=== PATIENT | male | born 1990 | race Caucasian/White ===

== ENCOUNTER 2024-03-19 09:16 | Outpatient (CLI) | payer BC ==
[2024-03-19 09:37] LABS: BASOPHILS # (AUTO) 0.1 X10'3 (0-0.2); BASOPHILS % (AUTO) 1.1 % (0-1); EOSINOPHILS # (AUTO) 0.5 X10'3 (0-0.9); EOSINOPHILS % (AUTO) 7.9 % (0-6); HEMATOCRIT 43.2 % (42.0-52.0); HEMOGLOBIN 14.6 g/dl (14.0-17.9); LYMPHOCYTES # (AUTO) 2.5 X10'3 (1.1-4.8); LYMPHOCYTES % (AUTO) 36.7 % (21-51); MEAN CORPUSCULAR HEMOGLOBIN 28.7 PG (27.0-31.0); MEAN CORPUSCULAR HGB CONC 33.7 g/dL (33.0-36.5); MEAN CORPUSCULAR VOLUME 85.1 FL (78-98); MEAN PLATELET VOLUME 8.6 FL (7.4-10.4); MONOCYTES # (AUTO) 0.5 X10'3 (0-0.9); MONOCYTES % (AUTO) 7.1 % (2-12); NEUTROPHILS # (AUTO) 3.3 X10'3 (1.8-7.7); NEUTROPHILS % (AUTO) 47.2 % (42-75); PLATELET COUNT 246 X10'3 (140-440); RED BLOOD COUNT 5.07 X10'6 (4.70-6.10); RED CELL DISTRIBUTION WIDTH 14.7 % (11.5-14.5); WHITE BLOOD COUNT 6.9 X10'3 (4.5-11.0)
[2024-03-19 09:50] LABS: HEMOGLOBIN A1C 5.3 % (4.5-6.2)
[2024-03-19 10:03] LABS: ALANINE AMINOTRANSFERASE 73 U/L (12-78); ALBUMIN 4.1 G/DL (3.4-5.0); ALBUMIN/GLOBULIN RATIO 1.1 (1.1-1.5); ALKALINE PHOSPHATASE 66 IU/L (46-116); ANION GAP 8 (8-16); ASPARTATE AMINO TRANSFERASE 25 U/L (10-37); BILIRUBIN,TOTAL 0.5 MG/DL (0.1-1.0); BLOOD UREA NITROGEN 18 MG/DL (7-18); BUN/CREATININE RATIO 18.2 (10.0-20.0); CALCIUM 8.7 MG/DL (8.5-10.1); CHLORIDE 104 MMOL/L (99-107); CHOL/HDL RATIO 5.2 (0.00-4.99); CHOLESTEROL 223 MG/DL (0-200); CREATININE 0.99 MG/DL (0.60-1.10); FREE T4 (FREE THYROXINE) 0.81 NG/DL (0.73-1.40); GLUCOSE 96 MG/DL (70-104); HDL CHOLESTEROL 43 MG/DL (35-60); LDL CHOLESTEROL 143 MG/DL (50-100); POTASSIUM 4.1 MMOL/L (3.5-5.1); SODIUM 140 MMOL/L (135-145); THYROID STIMULATING HORMONE 3.54 ulU/ml (0.34-4.50); TOTAL CARBON DIOXIDE 28.2 MMOL/L (24-32); TOTAL PROTEIN 7.7 G/DL (6.4-8.2); TRIGLYCERIDES 160 MG/DL (20-135); eGFR 86 ML/MIN
[2024-03-20 13:11] LABS: TESTOSTERONE, SERUM 310 ng/dL (264-916)
== END 2024-03-19 23:59 | disposition home or self-care (01) ==
LOC: LAB 09:16
PROVIDERS: ATTEND Nurse Practitioner Family
DX: Z13.220 Encounter for screening for lipoid disorders (principal); Z76.89 Persons encountering health services in other specified circumstances; Z13.1 Encounter for screening for diabetes mellitus; Z13.29 Encounter for screening for other suspected endocrine disorder; R53.83 Other fatigue; R45.86 Emotional lability; E66.01 Morbid (severe) obesity due to excess calories; R03.0 Elevated blood-pressure reading, without diagnosis of hypertension; Z83.49 Family history of other endocrine, nutritional and metabolic diseases
CPT/HCPCS: 36415; 80053; 80061; 82672; 83036; 84402; 84403; 84439; 84443; 85025

== ENCOUNTER 2024-08-04 08:56 | Day surgery (SDC) | payer BC ==
[~2024-08-04] VITALS: Ht 175.3 cm; Wt 124.2 kg
[~2024-08-04 08:56] MED LIST: ACYC-128 PO
[2024-08-04 09:32] VITALS: BP 137/72; PULSE 66; RESP 14; TEMP 97.8
[2024-08-04] MEDS ORDERED: fentaNYL/PF 50MCG/1 ML 2ML syringe ONE (10:52)
[2024-08-04] MEDS ORDERED: midazolam 1 mg/ML 2ml injection ONE (10:52)
[2024-08-04] MEDS ORDERED: propofol inj 20 ML IV ONE (10:53)
[2024-08-04 11:17] VITALS: BP 107/75; PULSE 77; RESP 13; O2SAT 97
[2024-08-04 11:26] VITALS: BP 120/74; PULSE 73; RESP 14; O2SAT 96
[2024-08-04 11:36] VITALS: BP 123/77; PULSE 64; RESP 18; O2SAT 98
[2024-08-04 11:46] VITALS: BP 119/76; PULSE 70; RESP 16; O2SAT 97
== END 2024-08-04 11:55 | disposition home or self-care (01) ==
LOC: GI LAB 08:56
PROVIDERS: ATTEND Internal Medicine Gastroenterology
DX: R13.10 Dysphagia, unspecified (principal); K21.00 Gastro-esophageal reflux disease with esophagitis, without bleeding; K31.89 Other diseases of stomach and duodenum; K22.89 Other specified disease of esophagus; Z79.899 Other long term (current) drug therapy
CPT/HCPCS: 43239; J2250; J2704; J3010; J7030; Z7512; A4620